=== PATIENT | male | born 1980 | race Caucasian/White ===

== ENCOUNTER 2018-05-05 16:19 | Emergency (ER) | payer OTHER ==
[2018-05-05 16:30] VITALS: TEMP 99
[2018-05-05] MEDS ORDERED: ACETAMINOPHEN TAB 500 MG TAB PO STA (16:41)
--- NOTE | 2018-05-05 17:33 | CT ---
EXAMINATION TYPE: CT brain javed wo con DATE OF EXAM: 05/05/2018 COMPARISON: None HISTORY: Hockey injury. Posterior head injury, +LOC. Neck pain. CT DLP: 1337.1 mGycm Automated exposure control for dose reduction was used. TECHNIQUE: CT scan of the head and cervical spine are performed without contrast. FINDINGS: Ventricles of normal size. There is no mass effect nor midline shift. There is no sign of intracranial hemorrhage. The calvarium is intact. There is left mastoid temporal bone surgery noted. The cervical vertebra have fairly normal spacing and alignment. Posterior elements are intact. Facet joints appear normal. The skull base is intact. There is no evidence for fracture. IMPRESSION: Negative CT scan of the brain. Previous left temporal bone surgery. Normal CT scan cervical spine.
--- NOTE | 2018-05-05 17:40 | XR ---
EXAMINATION TYPE: XR wrist complete LT DATE OF EXAM: 05/05/2018 COMPARISON: NONE HISTORY: Pain after falling TECHNIQUE: 4 views FINDINGS: Carpal bones are intact. I see no fracture nor dislocation. There is some soft tissue swell ing on the dorsum of the wrist. IMPRESSION: No fracture seen. Mild soft tissue swelling. Rounded bony density at the tip of the ulnar styloid process consistent with accessory ossicle or old injury.
--- NOTE | 2018-05-05 17:41 | ED ---
Head Injury HPI - General Chief complaint: Head Injury Stated complaint: Fall-Head Injury Time Seen by Provider: 05/05/18 16:32 Source: patient, RN notes reviewed Mode of arrival: ambulatory Limitations: no limitations - History of Present Illness Initial comments: 29-year-old male presents emergency Department chief complaint of slip and fall on ice. Patient states [place] town [place] [employer]. Patient states he felt backwards felt that he may have passed out. Patient complains of head neck pain. Patient also complains of left wrist pain. Patient states that he was drove here by his friends. Patient denies any nausea vomiting, chest pain, shortness breath, back pain denies any lower extremity symptoms - Related Data Home Medications Medication Instructions Recorded Confirmed No Known Home Medications 05/05/18 05/05/18 Allergies/Adverse reactions: Allergies Allergy/AdvReac Type Severity Reaction Status Date / Time No Known Allergies Allergy Verified 05/05/18 17:42 Review of Systems ROS Statement: Those systems with pertinent positive or pertinent negative responses have been documented in the HPI. ROS Other: All systems not noted in ROS Statement are negative. Past Medical History Past Medical History: No Reported History History of Any Multi-Drug Resistant Organisms: None Reported Past Surgical History: Tonsillectomy Past Psychological History: No Psychological Hx Reported Smoking Status: Never smoker Past Alcohol Use History: Occasional Past Drug Use History: None Reported General Exam Limitations: no limitations General appearance: alert, in no apparent distress Head exam: Present: atraumatic, normocephalic. Absent: normal inspection ( Occipital hematoma) Eye exam: Present: normal appearance, PERRL, EOMI. Absent: scleral icterus, conjunctival injection, periorbital swelling ENT exam: Present: normal exam, normal oropharynx, mucous membranes moist, TM's normal bilaterally, normal external ear exam Neck exam: Present: normal inspection, full ROM. Absent: tenderness, meningismus, lymphadenopathy Respiratory exam: Present: normal lung sounds bilaterally. Absent: respiratory distress, wheezes, rales, rhonchi, stridor Cardiovascular Exam: Present: regular rate, normal rhythm, normal heart sounds. Absent: systolic murmur, diastolic murmur, rubs, gallop, clicks Extremities exam: Present: other (Left wrist, moderate swelling, tenderness with palpation, no obvious deformity, neurovascular intact, scaphoid tenderness) Back exam: Present: full ROM. Absent: tenderness, paraspinal tenderness, vertebral tenderness Neurological exam: Present: alert, oriented X3, CN II-XII intact, reflexes normal. Absent: motor sensory deficit Skin exam: Present: warm, dry, intact, normal color. Absent: rash Course Vital Signs 05/05/18 16:27 Temperature 99.0 F Pulse Rate 90 Respiratory 16 Rate Blood Pressure 164/99 O2 Sat by Pulse 96 Oximetry Procedures - Orthopedic Splinting/Casting Injury #1 Side: left Upper Extremity Injury Location: short arm, wrist Upper Extremity Immobilizer: thumb spica, synthetic pre-padded splint Medical Decision Making - Medical Decision Making 29-year-old male presented for slip and fall on ice. CT of the head and neck were obtained no acute fracture, intracranial hemorrhage or mass effect. Patient had x-rays of the left foot no obvious fracture though he does have scaphoid tenderness. Patient was splinted in a thumb spica and will be referred to orthopedics for concern of scaphoid fracture. Disposition Clinical Impression: Contusion of scalp, Head injury, Fracture of scaphoid bone of hand Disposition: HOME SELF-CARE Condition: Stable Instructions: Concussion (ED), Suspected Fracture (ED) Additional Instructions: Please return to the Emergency Department if symptoms worsen or any other concerns. Is patient prescribed a controlled substance at d/c from ED?: No Referrals: None,Stated [Primary Care Provider] - 1-2 days Moose Jewell DO [Doctor of Osteopathic Medicine] - 1-2 days Time of Disposition: 17:45
[2018-05-05] MEDS ORDERED: ACET/COD 300 MG/30 MG STARTER PACK 6 TAB BTL PO STA (17:50)
[2018-05-05 18:22] VITALS: BP 142/87; PULSE 87; RESP 18
== END 2018-05-05 18:15 | disposition home or self-care (01) ==
LOC: EC 16:19
DX: S62.002A Unspecified fracture of navicular [scaphoid] bone of left wrist, initial encounter for closed fracture (principal); S00.03XA Contusion of scalp, initial encounter; W00.9XXA Unspecified fall due to ice and snow, initial encounter; Y93.22 Activity, ice hockey; Y92.328 Other athletic field as the place of occurrence of the external cause
CPT/HCPCS: 29125; 70450; 72125; 99284